=== PATIENT | male | born 1985 | race Caucasian/White ===

== ENCOUNTER 2023-10-20 21:33 | Emergency (ER) | payer OTHER, SELFPAY ==
[2023-10-20 21:35] VITALS: BP 151/101; BMI 28.7
[2023-10-20 21:38] VITALS: BP 151/101
[2023-10-20 21:47] VITALS: BP 151/102
[2023-10-20 22:00] VITALS: BP 135/102
[2023-10-20 22:00] LABS: % Basophils 0.7 % (0-2); % Eosinophils 2.4 % (0-6); % Immature Granulocytes 0.4 % (0-0.5); % Lymphocytes 17.1 % (20.5-51.1); % Monocytes 10.8 % (1.7-9.3); % Neutrophils 68.6 % (42.2-75.2); Absolute Eosinophils 0.1 10^3/uL (0-0.7); Absolute Lymphocytes 0.9 10^3/uL (1.2-3.4); Absolute Monocytes 0.6 10^3/uL (0.1-0.6); Absolute Neutrophils 3.7 10^3/uL (1.4-6.5); Hematocrit 44.5 % (39.0-52.0); Hemoglobin 15.6 g/dL (13.0-18.0); Mean Corp Hgb Conc. 35.1 g/dL (33.0-37.0); Mean Corpuscular Hgb 31.6 pg (27.0-31.0); Mean Corpuscular Volume 90.3 fL (80.0-94.0); Mean Platelet Volume 9.2 fL (7.4-10.4); Nucleated Red Blood Cells % 0 % (-); Platelet Count 154 10^3/uL (130-400); Red Blood Cell Count 4.93 10^6/uL (4.70-6.10); Red Cell Dist. Width 11.7 % (11.5-14.5); White Blood Cell Count 5.4 10^3/uL (4.8-10.8)
[2023-10-20 22:15] LABS: ALT (SGPT) 19 U/L (0-50); AST (SGOT) 29 U/L (17-59); Albumin 4.8 g/dl (3.5-5.0); Alkaline Phosphatase 80 U/L (38-126); Blood Urea Nitrogen 19 mg/dl (9-20); Calcium 9.8 mg/dl (8.4-10.2); Carbon Dioxide 20 mmol/L (22-30); Chloride 104 mmol/L (98-107); Estimated Creatinine Clearance 82 ml/min; Glucose 107 mg/dl (70-99); Potassium 3.7 mmol/L (3.5-5.1); Sodium 136 mmol/L (135-145); Total Bilirubin 0.8 mg/dl (0.2-1.3); Total Protein 7.4 g/dl (6.3-8.2); eGFR > 60.00
--- NOTE | 2023-10-20 22:18 | ED.GENMED ---
History of Present Illness
General
Chief Complaint: Crisis Evaluation
Source: patient
Time Seen by Provider: 10/20/23 21:49
Travel History
Have you had any contact with someone who has COVID-19?: No
Do you have any symptoms of coronavirus? Fever > 100 degrees, chills, cough, shortness of breath, sore throat, loss of taste or smell, muscle aches, or headache?: No
History of Present Illness
History of Present Illness:
This patient is a 38-year-old male presents emergency department with complaints of feeling like he is hot and flushed and his heart is racing. Patient has a history of bipolar disorder and states that for the past few days he has felt manic. He
felt the symptoms of palpitations and feeling hot at around 7:30 PM and it has not gone away. He does get episodes like this from time to time but usually goes away in a few minutes. Patient notes history of alcohol use disorder and states that he
had 2 bottles of wine yesterday which is not necessarily unusual for him. His last intake of alcohol was at 3 AM. He has never had hospitalization for alcohol withdrawal. He denies fever, chills, chest pain, shortness of breath, abdominal pain,
nausea, vomiting, headache, illicit drug use, back pain, or other complaints.
Past History
Past History
ED Past Medical History: GERD, HTN, Psychiatric (bipolar), Other (Psoriasis), Other and Other (Eosinophilic esophagitis)
ED Past Surgical History: Tonsilectomy
Social History
Tobacco: Non-smoker
Alcohol: Chronic alcoholic
Drug: None
Personal: Other (Noncontributory)
Living: alone
Employment: Employed
Family History
Family History: Other (Noncontributory)
Phy Exam
Physical Exam
Physical Exam:
GENERAL: Alert , in no apparent distress
EYE: pupils equal and reactive
NECK: Supple, no significant adenopathy.
ENT: o/p clr, mmm.
CARDIAC: Regular rate and rhythm, tachycardic.
LUNGS: Clear breath sounds bilaterally, no acute respiratory distress, no wheezes/rales/rhonchi
ABDOMEN: Soft, without focal tenderness, no r/g, no cvat
NEUROLOGICAL: Alert and oriented, no focal neuro deficits
SKIN: Warm and dry, skin intact.
MUSCULOSKELETAL: No edema, well perfused.
PSYCH: Normal and appropriate interaction, slightly decreased affect, has felt suicidal in the recent past but denies SI at this moment, denies plan to me although he did describe a plan to the nurse, crisis has been consulted.
Scores
Withdrawal Assessment of Alcohol
Nausea and Vomiting: No nausea and no vomiting
Tactile Disturbances: None
Tremor: No tremor
Auditory Disturbances: Not present
Paroxysmal Sweats: No sweat visible
Visual Disturbances: Not present
Anxiety: No anxiety, at ease
Headache, Fullness in Head: Not present
Agitation: Normal activity
Orientation and clouding of sensorium: Oriented and can do serial additions
Total CIWA Score: 0
Alcohol Withdrawal Medication Recommendation: Equal to MSAS Score 0-4. Monitor & re-assess q2hrs, NO MEDICATION NEEDED
Course
Orders/Labs/Results
Orders:
Orders
10/20/23 21:40
1:1 Observation - Suicide/ Violent Behavior As Directed
10/20/23 21:41
EKG [Electrocardiogram (*1)] Urgent
Reason for Study: Tachycardia
Crisis Consult Urgent
Reason for Consult: manic, SI and plan
10/20/23 21:42
EKG- Treatment ONCE
10/20/23 21:49
Alcohol Urgent
Complete Blood Count/With Diff Urgent
Comprehensive Metabolic Panel Urgent
TSH Urgent
Comment: ADD ON
10/20/23 22:15
0.9% Sodium Chloride 500 ml [Nss] 500 ml IV BOLUS
Lorazepam [Ativan] 0.5 mg IV NOW STA
10/20/23 22:40
Urine Drug Abuse Screen Urgent
Date Specimen was Collected: 10/20/23
Time Specimen was Collected: 22:38
10/20/23 22:54
Add On- LAB Stat
Tests Added?: TSH
Abnormal Lab Results
10/20/23 10/20/23
21:49 22:40
MCH 31.6 H pg
(27.0-31.0)
Absolute Lymphs (auto) 0.9 L 10^3/uL
(1.2-3.4)
Lymphocytes % 17.1 L %
(20.5-51.1)
Monocytes % 10.8 H %
(1.7-9.3)
Carbon Dioxide 20 L mmol/L
(22-30)
Glucose 107 H mg/dl
(70-99)
Ur Tricyclics Screen Positive H
(Negative)
10/20/23 21:49
10/20/23 21:49
Vital Signs
Initial and Last Documented VS:
Initial Vital Signs
Temp Pulse Resp BP Pulse Ox
98.3 F 130 25 151/101 97
10/20/23 21:35 10/20/23 21:35 10/20/23 21:35 10/20/23 21:35 10/20/23 21:35
Last Documented Vital Signs
Temp Pulse Resp BP Pulse Ox
98.3 F 123 29 135/102 97
10/20/23 21:35 10/21/23 01:18 10/21/23 01:18 10/20/23 22:00 10/20/23 22:15
*Critical Care Note
Total Time (30-74mins, 75-104mins- exclusive of procedures): Not Applicable
Update Note
Update Note:
Patient presents to the Emergency Department with __palpitations and feeling hot
Number and Complexity of Problems Addressed at the Encounter
� Chronic conditions affecting care:
� Acute Exacerbation and/or Progression of Chronic Illness:
� Differential Diagnosis includes: But not limited to electrolyte disorder, hyperthyroidism, illicit drug use, alcohol use or withdrawal, dehydration, medication reaction etc. etc.
Amount and/or Complexity of Data to be Reviewed and Analyzed
� I performed an independent evaluation of and my interpretation is:
EKG:read by me, sinus tachycardia, no acute ischemia
CT:
Xrays:
Laboratory Studies:generally unremkarble
Other:
� Review of other/old records reveals:
� Clinical information was obtained by an independent historian:
� Prescriptions/Medications Considered but not given:
� Further testing considered but not performed:
Risk of Complications and/or Morbidity or Mortality of Patient Management
� Social determinants of health affecting care:
� Discussion with other providers (PCP, Hospitalists, Consultants, etc):
� Escalation of care including admission/observation vs risk of discharge considered:1256AM Pt seen by crisis, continues to deny SI, given a wide variety of outpt resources for AUD. Pt ate a full meal here, resting comfortably,
in nad. He says he feels calm, not anxious, no palpitations, no sxs. Pt lucid. Tachycardia markedly improved (ws 130...now 111), may be related to his chronic meds vs anxiety (resolving), etc. Do nto suspect pe, acs, etoh withdrawal (no other
s/sxs of withdrawal--no tremor/anxiety/sweats/n/v/etc/etc), etc. Pt would like to go home, which is reasonable given his nontoxic appearance, unremkarable w/u and contract for safety. D/w pt import of f/u and reasons to rted.
ED Attending Note
-
Portions of this chart may have been created with voice recognition software.� Occasional wrong word or��sound alike� substitutions may have occurred due to the inherent limitations of voice recognition software.
Discharge Plan
Departure
Patient Disposition: Home (Routine Discharge)
Date of Disposition: 10/21/23
Time of Disposition: 00:59
Patient with high blood pressure during this ER visit?: Yes
Condition: Good
Discharge Problem:
Anxiety
Instructions: Anxiety, Adult (DC), Palpitations, BLOOD PRESSURE, Drug and Alcohol Abuse Information
Prescriptions:
No Action
pantoprazole [Protonix] 40 MG tablet,delayed release (DR/EC)
40 mg PO DAILY
ferrous sulfate [Iron (ferrous sulfate)] 325 MG tablet
325 mg PO DAILY
folic acid 1 MG tablet
1 mg PO DAILY
sertraline 50 MG tablet
75 mg PO DAILY
quetiapine [Seroquel] 400 MG tablet
400 mg PO HS
lisinopril 10 MG tablet
10 mg PO DAILY
topiramate 100 MG tablet
100 mg PO DAILY
ixekizumab [Taltz Autoinjector] 80 MG/ML auto-injector
80 mg SQ MONTHLY
dicyclomine 20 MG tablet
20 mg PO QIDPRN PRN (Reason: abdominal pain) Qty: 20 0RF
Referrals:
UNKNOWN - PT NOT,INTERVIEWE [Family Provider] -
Activity Restrictions/Additional Instructions:
PLEASE SEE YOUR DOCTOR IN CLOSE FOLLOW UP. IF YOU DEVELOP THOUGHTS OF WANTING TO HURT YOURSELF OR OTHERS, DIZZINESS, CHEST PAIN, VOMITING, TREMORS, TROUBLE BREATHING, OR OTHER WORRISOME SIGNS, GO TO THE ER IMMEDIATELY!
Interventions
Interventions:
*Risk Screen - Suicide Last Done: 10/20/23 21:35
*General Assessment Last Done: 10/20/23 21:35
*Neglect/Abuse Screening Last Done: 10/20/23 21:35
ED- Fall Risk Assessment Last Done: 10/20/23 21:35
*ED COVID-19 Vaccine History Last Done: 10/20/23 21:35
*Nursing Disposition Last Done: 10/21/23 01:23
ED-Psychological Assessment Last Done: 10/20/23 21:43
Discharge Date and Time
Discharge Date/Time: 10/21/23 01:24
Print Language: [place]
[2023-10-20 22:20] LABS: Alcohol None Detected
[2023-10-20] MEDS: ATIVAN 0.5 MG IV (22:20)
[2023-10-20] MEDS: NSS 500 IV (22:22)
[2023-10-20 23:01] LABS: Amphetamines Negative (Negative); Barbiturates Negative (Negative); Benzodiazepines Negative (Negative); Buprenorphine Negative (Negative); Cocaine Negative (Negative); Marijuana Negative (Negative); Methadone Negative (Negative); Methamphetamines Negative (Negative); Opiates Negative (Negative); Phencyclidine Negative (Negative); Tricyclic Antidepressants Positive (Negative)
[2023-10-21 00:21] LABS: TSH 2.48 uIU/ml (0.47-4.68)
== END 2023-10-21 01:24 | disposition home or self-care (01) ==
LOC: EMR 21:33
PROVIDERS: Emergency Medicine; EMERGENCY PHYSICIAN Emergency Medicine
DX: F41.9 Anxiety disorder, unspecified (principal); K21.9 Gastro-esophageal reflux disease without esophagitis; I10 Essential (primary) hypertension; F31.9 Bipolar disorder, unspecified; L40.9 Psoriasis, unspecified; K20.0 Eosinophilic esophagitis
CPT/HCPCS: 99283; 96374; 80053; 80306; 82077; 84443; 85025; 93005